=== PATIENT | female | born 1975 | race Caucasian/White ===

== ENCOUNTER 2016-06-30 16:21 | Inpatient (IN) | payer MEDICARE, OTHER ==
[~2016-06-30] VITALS: Ht 152.4 cm; Wt 43.0 kg
[2016-06-30 18:49] LABS: BASO % 0.1 % (0.1-1.2); EOS % 0.2 % (0.7-5.8); GRAN # 9.2 10_X3_uL (1.6-6.1); GRAN % 84.9 % (34.0-71.1); HEMATOCRIT 45.2 % (34-45); LYMPH # 1.3 10_X3_uL (1.2-3.7); LYMPH % 12.2 % (19.3-51.7); MEAN CORPUSCULAR HEMOGLOBIN 31.9 pg (27.0-33.0); MEAN CORPUSCULAR HGB CONC 35.4 g/dL (32.0-36.0); MEAN CORPUSCULAR VOLUME 90.2 fL (79-95); MONO # 0.3 10_X3_uL (0.2-0.9); MONO % 2.6 % (4.7-12.5); PLATELET COUNT 231 x10_3/uL (182-369); RED BLOOD COUNT 5.01 x10_6/uL (3.9-5.2); RED CELL DISTRIBUTION WIDTH 12.4 % (11.7-14.4); WHITE BLOOD COUNT 10.9 x10_3/uL (4.0-10.0)
[2016-06-30 18:59] LABS: ARTERIAL BLD GAS O2 SATURATION 93.7 % (94-98); ARTERIAL BLOOD GAS BASE EXCESS 2.3 mmol/L (-2.0-3.0); ARTERIAL BLOOD GAS PCO2 39.2 mmHg (32-45); ARTERIAL BLOOD GAS pH 7.44 (7.35-7.45)
[2016-06-30 19:04] LABS: ALBUMIN 4.6 gm/dL (3.4-5.0); ALKALINE PHOSPHATASE 94 U/L (50-136); ALT/SGPT 15 U/L (3.5-33.9); AST/SGOT 15 U/L (7.04-26.96); BLOOD UREA NITROGEN 11 mg/dL (7-18); CALCIUM 9.6 mg/dL (8.7-10.7); CARBON DIOXIDE 26 mmol/L (21-32); CREATINE KINASE 47 U/L (21-215); CREATININE 0.5 mg/dL (0.6-1.3); GLUCOSE,RANDOM 125 mg/dL (70-99); POTASSIUM 3.6 mmol/L (3.5-5.1); SODIUM 138 mmol/L (136-145); TOTAL PROTEIN 7.7 gm/dL (6.4-8.2)
[2016-07-01 07:02] LABS: GRAN # 3.6 10_X3_uL (1.6-6.1); GRAN % 83.6 % (34.0-71.1); HEMOGLOBIN 13.9 g/dL (11.2-15.7); LYMPH # 0.6 10_X3_uL (1.2-3.7); LYMPH % 14.8 % (19.3-51.7); MEAN CORPUSCULAR HEMOGLOBIN 31.4 pg (27.0-33.0); MEAN CORPUSCULAR HGB CONC 34.8 g/dL (32.0-36.0); MEAN CORPUSCULAR VOLUME 90.5 fL (79-95); MEAN PLATELET VOLUME 10.6 fl (7.5-11.5); MONO # 0.1 10_X3_uL (0.2-0.9); MONO % 1.6 % (4.7-12.5); PLATELET COUNT 202 x10_3/uL (182-369); RED BLOOD COUNT 4.42 x10_6/uL (3.9-5.2); WHITE BLOOD COUNT 4.3 x10_3/uL (4.0-10.0)
== END 2016-07-04 12:12 | disposition home or self-care (01) | DRG 192 ==
LOC: ER 16:21 → MS 20:06 → UNDODEPER 07-02 18:46 → MS 07-04 12:12
PROVIDERS: Internal Medicine; ADMIT Family Medicine
DX: J44.1 Chronic obstructive pulmonary disease with (acute) exacerbation (principal); F17.210 Nicotine dependence, cigarettes, uncomplicated; Z98.890 Other specified postprocedural states; Z90.710 Acquired absence of both cervix and uterus; Z88.8 Allergy status to other drugs, medicaments and biological substances; Z79.899 Other long term (current) drug therapy
CPT/HCPCS: 36415; 36600; 71020; 80053; 82550; 82553; 82803; 83605; 85025; 86738; 87040; 87070; 87205; 87449; 93005; 94640; 94664; 99070; 99284; 99285; J2930

== ENCOUNTER 2016-06-30 16:21 | Emergency (ER) | payer MEDICARE, OTHER | END 2016-06-30 20:06 | disposition other institution (70) | LOC: ER 16:21 | DX: J44.1 Chronic obstructive pulmonary disease with (acute) exacerbation (principal); Z99.81 Dependence on supplemental oxygen; Z79.899 Other long term (current) drug therapy | CPT/HCPCS: 99284; 99285 ==